=== PATIENT | female | born 1985 | race Caucasian/White ===

== ENCOUNTER 2016-12-10 14:12 | Emergency (ER) | payer BC, OTHER ==
[~2016-12-10] VITALS: Ht 167.6 cm; Wt 50.0 kg
[2016-12-10 14:17] VITALS: Ht 167.6 cm; Wt 50.0 kg
--- NOTE | 2016-12-10 15:40 | RADRPT ---
PROCEDURE: CT Brain without. CLINICAL INDICATION: Head injury. TECHNIQUE: A CT of the brain was performed on multidetector high-resolution CT scanner utilizing a xial sections from the skull base through the vertex without contrast. The scan was reviewed in sof t tissue brain and high frequency resolution bone algorithm windows. Images were reviewed on a high -resolution PACS workstation. One or more the following does reduction techniques were utilized: Aut omated exposure control, adjustment of the mA/ or kV according to patient's size, or use of iterativ e reconstruction technique. The exam CTDI = 45.01 mGy and the DLP = 720.23 mGy-cm. COMPARISON: None available. FINDINGS: The ventricles and sulci are age-appropriate. There is no intracranial hemorrhage, mass effect or mi dline shift. No abnormal intra-axial or extra-axial fluid collections are seen. The gilliam/white neal er differentiation is preserved. The visualized paranasal sinuses are essentially clear. IMPRESSION: 1. No acute intracranial hemorrhage, transcortical infarction or mass effect. RPTAT: HFN .Avinash Olvera MD, MD Date Time Electronically viewed and signed by .Avinash Olvera MD, MD on 12/10/2016 15:40 .N/
[2016-12-10] MEDS ORDERED: ACETAMINOPHEN 500 MG TAB PO STA (15:42)
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
== END 2016-12-10 16:07 ==
LOC: E/R 14:12
DX: S09.90XA Unspecified injury of head, initial encounter (principal); F17.210 Nicotine dependence, cigarettes, uncomplicated; R51 Headache; Y04.0XXA Assault by unarmed brawl or fight, initial encounter
CPT/HCPCS: 70450